=== PATIENT | male | born 1995 | race Caucasian/White ===

== ENCOUNTER 2022-12-10 10:32 | Outpatient (CLI) | payer OTHER, SELFPAY ==
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
== END 2022-12-10 10:52 ==
PROVIDERS: Visit Provider Physician Assistant Medical
DX: M25.512 Pain in left shoulder (principal)
CPT/HCPCS: 73010

== ENCOUNTER 2023-09-23 13:17 | Outpatient (REF) | payer OTHER, SELFPAY | END 2023-09-23 13:18 | disposition home or self-care (01) | LOC: LBN 13:17 | PROVIDERS: Visit Provider Nurse Practitioner Family | DX: J02.9 Acute pharyngitis, unspecified (principal) | CPT/HCPCS: 87070 ==

== ENCOUNTER 2025-08-25 13:58 | Emergency (ER) | payer OTHER, SELFPAY ==
[2025-08-25] VITALS (12 sets, daily range): BP systolic 104–133; BP diastolic 53–67; PULSE 85–102; RESP 16–25; TEMP 37.1; O2SAT 95–98
--- NOTE | 2025-08-25 13:45 | RT.EKG_ITS ---
APPROVED REPORT Exam: Resting ECG Reason for Exam: Chest Pain Patient Location: E HR:81 bpm ECG Measurements Heart Rate 81 AXIS AZ 132 P 51 QRSd 99 QRS 83 QT 352 T 33 QTc 409 Conclusion Sinus rhythm...normal P axis, V-rate 60- 99 Probable inferior infarct, old...Q>35mS, II III aVF No STEMI
--- NOTE | 2025-08-25 14:30 | ED.GENADUL_ITS ---
Discharge Plan Disposition Patient Disposition: Home Discharge Details Clinical Impression: Chest pain, Pleuritis, CAP (community acquired pneumonia) Primary Care Provider: Unknown,Unknown ED Provider: Michael Woodard Home Meds and New Rx's Prescriptions: New acetaminophen [Tylenol] 325 mg tablet 975 mg PO ONCE PRNQty: 60 0RF ibuprofen 600 mg tablet 600 mg PO Q6H PRNQty: 30 0RF amoxicillin 500 mg capsule 1,000 mg PO TID Qty: 30 0RF azithromycin 250 mg tablet 250 mg PO DAILY 6 Days Qty: 6 0RF Rx Instructions: start on day 2 of therapy Discharge Instructions Instructions: Pneumonia in adults, Pleurisy (ED) Additional Instructions: Please follow-up with your primary care provider regarding your visit to the emergency department today. Be sure to discuss results of all test performed here today to include radiology, and laboratory testing as well as results for any pending cultures. Should your symptoms worsen, or if you develop new concerning symptoms, please return immediately emergency department for further evaluation. HPI General Date/Time Provider Initiated Documentation: 08/25/25 14:04 . HPI Narrative: MDM/Narrative: Initial Assessment: 30-year-old male with chest pain and dyspnea since Wednesday. No cough, fever 102°F, no trauma, significant smoking history. Differential Diagnosis: - Myocardial infarction: EKG negative, blood work pending. Low risk by heart score - Pulmonary embolism: Significant smoking history, CT scan ordered. - Pleuritis: Possible viral infection, will assess response to medication. - Pericarditis: EKG negative.. ED Course: - EKG negative for myocardial infarction. - Blood work ordered. - CT scan ordered to rule out pulmonary embolism. - Pain management initiated. Final Assessment: Significant improvement of pain following medication. Labs remarkable just for lymphocytosis without leukocytosis. CT imaging shows increased markings in the lingula, no acute PE or other infiltrates. Given patient's recent fever, significant pleuritic pain in the area of the lingula, will consider to see early pneumonia and treated with amoxicillin as Z-Richard. Clinical Impression: - Chest pain - Dyspnea - Early pnuemonia Disposition: Home This document was created with assistance from [employer] The patient consented to its use. HPI: The patient is a 30-year-old male presenting with chest pain and dyspnea. The symptoms commenced on Wednesday, initially manifesting as left-sided chest pain radiating to the mid-back, and have since become diffuse. He reports a fever of 102°F accompanied by profuse diaphoresis, which is exacerbated by physical activity, leading to episodes of hyperventilation. The patient denies upper respiratory infection (URI) symptoms, has experienced only a few episodes of cough, and reports no history of trauma. He noted transient numbness in his ri ght foot on one occasion, with no subsequent recurrence. The patient has no history of asthma or chronic obstructive pulmonary disease (COPD). An evaluation at an urgent care facility suggested the presence of fluid in the lungs. He tested negative for COVID-19 and has not received the influenza vaccine this year. He denies myalgia and cephalgia. The patient has a smoking history of one pack per day. Administration of acetaminophen (Tylenol) provided some symptomatic relief. ROS: Negative besides as mentioned above Exam: Vital signs: Reviewed. General Appearance: Alert and oriented. No acute distress. HEENT: NCAT, EOMI, not icteric. External ears normal. No rhinorrhea. Moist mucous membranes. Neck: Supple, full range of motion, no observable masses, No meningeal sign. Respiratory: No wheezing,. No reproducible tenderness to chest wall rales or rhonchi Cardiovascular: Normal heart sounds, no murmurs. Gastrointestinal: Soft, nondistended, No rebound tenderness. Skin: Warm and dry, no rash. Neurological: Normal Gait, Grossly intact. Psychiatric: Appropriate for situation. Rhythm: NSR Rate: 81 [place]: Normal axis Intervals: Normal intervals Other findings: No acute ST segment or T wave changes to suggest acute ischemia. Labs: Laboratory Tests Range/Units 08/25/25 14:48 WBC (4.4-10.8) 10^3/uL 6.36 RBC (4.36-5.78) 10^6/uL 4.85 Hgb (13.5-17.5) g/dL 15.3 Hct (40.0-50.0) % 44.7 MCV (80-95) fL 92 MCH (27.0-33.0) pg 31.5 MCHC (32.0-36.0) % 34.2 RDW (11.8-14.1) % 12.2 Plt Count (130-400) 10^3/uL 292 MPV (8.0-11.0) fL 8.3 Immature Gran % % 0.3 Neutrophils % % 77.5 Lymphocytes % % 11.5 Monocytes % % 8.2 Eosinophils % % 1.9 Basophils % % 0.6 Nucleated RBC % (0.0-0.3) % 0.0 Absolute Neutrophils (1.2-6.7) 10^3/uL 4.93 Absolute Lymphocytes (1.2-3.4) 10^3/uL 0.73 L Absolute Monocytes (0.1-0.8) 10^3/uL 0.52 Absolute Eosinophils (0.0-0.7) 10^3/uL 0.12 Absolute Basophils (0.0-0.2) 10^3/uL 0.04 Sodium (136-145) mmol/L 137 Potassium (3.5-5.1) mmol/L 3.9 Chloride (98-107) mmol/L 102 Carbon Dioxide (21.0-32.0) mmol/L 29.9 Anion Gap (3-11) mmol/L 5.1 BUN (7-18) mg/dL 14 Creatinine (0.70-1.30) mg/dL 0.9 Est GFR (CKD-EPI 2020) (mL/min/1.73m2) 117.83 Glucose (74-106) mg/dL 105 Calcium (8.5-10.1) mg/dL 8.6 Total Bilirubin (0.2-1.0) mg/dL 1.1 H AST (15-37) U/L 22 ALT (16-63) U/L 36 Alkaline Phosphatase (46-116) U/L 70 Troponin I (<or=76) ng/L < 4 Total Protein (6.4-8.2) g/dL 7.2 Albumin (3.4-5.0) g/dL 3.6 Radiology: Exam(s) CT CHEST PE CTA EXAM: CT CHEST PE CTA CLINICAL HISTORY: chest pain. TECHNIQUE: Imaging Protocol: CT angiography of the chest was performed using pulmonary embolus protocol. Multi planar reconstructions were performed. CONTRAST MATERIAL: Intravenous: Omnipaque 350 Contrast volume: 70 cc COMPARISON: No exams were available for comparison FINDINGS: CHEST: PULMONARY ARTERIES: There are no intraluminal filling defects to suggest acute pulmonary emboli. LUNGS: There is a solitary small benign appearing fissure related nodule in the right lung. There is mild infiltrate in the inferior lingular segment of the left lung and mild increased markings in both lung bases posterior basal segments both lower lobes. There are no pleural effusions. No significant findings in the trachea and mainstem bronchi.. MEDIASTINUM: There is no hilar nor mediastinal adenopathy. CARDIAC: Heart size is normal. There is no pericardial effusion.Caliber of the thoracic aorta is within normal limits. No evidence of dissection. There is no significant shift of the interventricular septum. PARTIALLY VISUALIZED UPPERMOST ABDOMEN: There is no contrast reflux into the intrahepatic IVC (which would reflect right heart strain). No adrenal masses. No ascites. OSSEOUS: No significant osseous lesions.No fractures.. IMPRESSION: 1. No evidence of acute pulmonary emboli. No evidence of pulmonary infarction.No pleural effusions. 2. There are mild increased markings in the inferior lingular segment of the left lung. May represent mild infiltrate. There is no intrathoracic adenopathy. Called by myself to ER physician 08/25/2025 at 3:45 p.m. Related Data Home Medications Medication Instructions Recorded Confirmed acetaminophen 325 mg tablet 975 mg (3 x 325 mg) PO ONC E PRN 08/25/25 (Tylenol) #60 tabs amoxicillin 500 mg capsule 1,000 mg (2 x 500 mg) PO TI D #30 08/25/25 caps azithromycin 250 mg tablet 250 mg PO DAILY 6 days #6 t abs 08/25/25 ibuprofen 600 mg tablet 600 mg PO Q6H PRN #30 tabs 1 10/25/24 Previous Rx's Medication Instructions Recorded acetaminophen 325 mg tablet 975 mg (3 x 325 mg) PO ONC E PRN 08/25/25 (Tylenol) #60 tabs amoxicillin 500 mg capsule 1,000 mg (2 x 500 mg) PO TI D #30 08/25/25 caps azithromycin 250 mg tablet 250 mg PO DAILY 6 days #6 t abs 08/25/25 ibuprofen 600 mg tablet 600 mg PO Q6H PRN #30 tabs 1 10/25/24 Allergies Allergy/AdvReac Type Severity Reaction Status Date / Time No Known Allergies Allergy Verified 08/25/25 14:14 General Stated Complaint: Chest Pain IGLESIA: 3 Course Vital Signs Vital signs: Vital Signs Temperature 37.1 C 08/25/25 14:10 Pulse 85 08/25/25 14:10 Respiratory Rate 20 08/25/25 14:10 Blood Pressure 104/67 08/25/25 14:10 Pulse Oximetry 95 08/25/25 14:10 Temperature 37.1 C 08/25/25 14:10 Pulse 85 08/25/25 14:10 Respiratory Rate 20 08/25/25 14:10 Blood Pressure 104/67 08/25/25 14:10 Blood Pressure Position Sitting 08/25/25 14:10 Pulse Oximetry 95 08/25/25 14:10 Oxygen Delivery Method Room Air 08/25/25 14:10 Oxygen Flow Rate 0 08/25/25 14:10 PFSH All Active Problems (Updated 08/25/25 @ 15:58 by Michael Woodard MD) CAP (community acquired pneumonia) (Acute) Pleuritis (Acute) Chest pain (Acute) Medical History Fracture of left fibula Fracture of mandible right, 04/2015 Surgical History Mandible Fracture 05/09/15-[facility] [place] Fracture of left fibula Family History Mother No problems noted. Father No problems noted. Other No problems noted. Grandmother Essential hypertension Social History Smoking/Tobacco Use Status: Current every day Smoking risk assessment performed?: Yes Drug use: Never Do you feel safe in your relationship?: Yes PAWSS Have you Been Recently Intoxicated or Drunk Within the Last 30 days?: No Have you Ever Experienced Previous Episodes of Alcohol Withdrawal?: No Have you ever Experienced Withdrawal Seizures?: No Have you ever Experienced Delirium Tremens(DT)s?: No Have you ever undergone Alcohol Rehabilitation Treatment (i.e, inpt ot outpatient treatment programs)?: No Have you ever Experienced Blackouts?: No Have you ever Combined Alcohol with other Downers within the last 90 days?: No Have you ever Combined Alcohol with any other Substance of Abuse during the last 90 days?: No Positive Blood Alcohol level on Presentation? [PCS.BAL]: No Evidence of Increased Autonomic Activity (i.e. HR>120, tremor, sweating, agitation, nausea)?: No Result: 0
--- NOTE | 2025-08-25 14:30 | DI.CT_ITS ---
Exam(s) CT CHEST PE CTA EXAM: CT CHEST PE CTA CLINICAL HISTORY: chest pain. TECHNIQUE: Imaging Protocol: CT angiography of the chest was performed using pulmonary embolus protocol. Multi planar reconstructions were performed. CONTRAST MATERIAL: Intravenous: Omnipaque 350 Contrast volume: 70 cc COMPARISON: No exams were available for comparison FINDINGS: CHEST: PULMONARY ARTERIES: There are no intraluminal filling defects to suggest acute pulmonary emboli. LUNGS: There is a solitary small benign appearing fissure related nodule in the right lung. There is mild infiltrate in the inferior lingular segment of the left lung and mild increased markings in both lung bases posterior basal segments both lower lobes. There are no pleural effusions. No significant findings in the trachea and mainstem bronchi.. MEDIASTINUM: There is no hilar nor mediastinal adenopathy. CARDIAC: Heart size is normal. There is no pericardial effusion.Caliber of the thoracic aorta is within normal limits. No evidence of dissection. There is no significant shift of the interventricular septum. PARTIALLY VISUALIZED UPPERMOST ABDOMEN: There is no contrast reflux into the intrahepatic IVC (which would reflect right heart strain). No adrenal masses. No ascites. OSSEOUS: No significant osseous lesions.No fractures.. IMPRESSION: 1. No evidence of acute pulmonary emboli. No evidence of pulmonary infarction.No pleural effusions. 2. There are mild increased markings in the inferior lingular segment of the left lung. May represent mild infiltrate. There is no intrathoracic adenopathy. Called by myself to ER physician 08/25/2025 at 3:45 p.m. RADIATION DOSE DELIVERED: 171.35mGy.cm Total DLP DATA REPOSITORY: All CT scans at this facility are submitted to the National Radiology Data Registry (NRDR) Dose Index Registry (DIR) with the [employer] ([employer]). RADIATION OPTIMIZATION: All CT scans at this facility use at least one of these dose optimization techniques: automated exposure control; mA and/or kV adjustment per patient size (includes targeted exams where dose is matched to clinical indication); or iterative reconstruction.
[2025-08-25] MEDS: ACETAMINOPHEN 1,000 MG/100 ML BAG 400 MG IVPB (14:53)
[2025-08-25] MEDS: Ketorolac 15 MG/ML VIAL IVP (14:53)
[2025-08-25 14:56] LABS: Abs Immature Grans 0.02 10^3/uL (0.0-0.06); HCT 44.7 % (40.0-50.0); HGB 15.3 g/dL (13.5-17.5); Immature Grans % 0.3 %; MCH 31.5 pg (27.0-33.0); MCHC 34.2 % (32.0-36.0); MCV 92 fL (80-95); MPV 8.3 fL (8.0-11.0); Platelet Count 292 10^3/uL (130-400); RBC 4.85 10^6/uL (4.36-5.78); RDW 12.2 % (11.8-14.1); RDW-SD 41.8 fL; WBC 6.36 10^3/uL (4.4-10.8)
[2025-08-25 15:14] LABS: ALT 36 U/L (16-63); AST 22 U/L (15-37); Albumin 3.6 g/dL (3.4-5.0); Alkaline Phosphatase 70 U/L (46-116); Anion Gap 5.1 mmol/L (3-11); BUN 14 mg/dL (7-18); Bilirubin, Total 1.1 mg/dL (0.2-1.0); CO2 29.9 mmol/L (21.0-32.0); Calcium 8.6 mg/dL (8.5-10.1); Chloride 102 mmol/L (98-107); Glucose 105 mg/dL (74-106); Potassium 3.9 mmol/L (3.5-5.1); Sodium 137 mmol/L (136-145); Total Protein 7.2 g/dL (6.4-8.2)
[2025-08-25] MEDS: Omnipaque 350 MG/ML 100 ML BTL IJ (15:18)
[2025-08-25] MEDS: Normal Saline - Diluent 50 ML VIAL IJ (15:18)
[2025-08-25 15:19] LABS: Troponin I < 4 ng/L (<or=76)
== END 2025-08-25 16:19 | disposition home or self-care (01) ==
PROVIDERS: Emergency Provider General Practice
DX: J18.9 Pneumonia, unspecified organism; R07.9 Chest pain, unspecified; R09.1 Pleurisy; R50.9 Fever, unspecified
CPT/HCPCS: 99284; 99285; 96374; 96375; 36415; 71275; 80053; 93005; 84484; 85025; 93010; J0131; J1885; J3490